=== PATIENT | female | born 2000 | race Caucasian/White ===

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

== ENCOUNTER 2021-10-01 11:16 | Emergency (ER) | payer OTHER ==
[~2021-10-01] VITALS: Ht 167.6 cm; Wt 59.0 kg
[2021-10-01] MEDS ORDERED: KETO10TA2 PO (18:16)
== END 2021-10-01 18:29 | disposition home or self-care (01) ==
LOC: EMR PED 11:16 → ER 11:16 → EMR PED 15:03
DX: R10.84 Generalized abdominal pain (principal); R11.10 Vomiting, unspecified; E86.0 Dehydration; Z20.822 Contact with and (suspected) exposure to COVID-19

== ENCOUNTER 2022-12-23 11:18 | Outpatient (CLI) | payer OTHER ==
[~2022-12-23 11:18] MED LIST: KETO10TA2 PO
== END 2022-12-23 13:41 | disposition home or self-care (01) ==
LOC: LAB 11:18
DX: E07.9 Disorder of thyroid, unspecified (principal); I10 Essential (primary) hypertension; N39.0 Urinary tract infection, site not specified; E55.9 Vitamin D deficiency, unspecified

== ENCOUNTER 2022-12-30 13:32 | Emergency (ER) | payer OTHER ==
[~2022-12-30] VITALS: Ht 167.6 cm; Wt 59.4 kg
== END 2022-12-30 16:01 | disposition home or self-care (01) ==
LOC: ER 13:32
DX: D64.89 Other specified anemias (principal)

== ENCOUNTER 2024-07-24 10:04 | Outpatient (CLI) | payer OTHER | END 2024-07-24 10:20 | disposition home or self-care (01) | LOC: MRI 10:04 | DX: N80.00 Endometriosis of the uterus, unspecified (principal); R10.2 Pelvic and perineal pain | CPT/HCPCS: 72197 ==